=== PATIENT | female | born 1940 | race Caucasian/White ===

== ENCOUNTER → 2018-12-07 11:40 | Outpatient (CLI) | payer OTHER, SELFPAY ==
--- NOTE | 2018-12-07 | DI.CT.S_ITS ---
PROCEDURE: CT ABDOMEN PELVIS W CON INDICATIONS: ABDOMINAL MASS TECHNIQUE: After the administration of oral and intravenous contrast, 5 mm thick sections acquired from the diaphragms to the symphysis. 5 mm thick coronal and sagittal reformats were performed. For radiation dose reduction, the following was used: automated exposure control, adjustment of mA and/or kV according to patient size. COMPARISON: None. FINDINGS: Image quality: Excellent. ABDOMEN: Lung bases: Lung bases are clear. Heart size is normal. Solid organs: Liver is normal in size and enhancement. Numerous scattered hepatic hypodensities are too small to accurately characterize. The largest measures approximate 9 mm with suggestion of peripheral nodular enhancement. Findings may represent hepatic hemangiomas versus cysts. Gallbladder demonstrates asymmetric wall thickening which may represent adherent gallstones or sludge. No pericholecystic fluid or stranding. Biliary system is non-dilated. Pancreas enhances normally. Spleen is normal in size and enhancement. No adrenal nodules. Kidneys demonstrate normal variant rotation and positioning with the right kidney situated more anteriorly towards the midline abdomen. Kidneys are normal in size and enhancement, without hydronephrosis. There is a 2 mm nonobstructive right and a 7 mm nonobstructive left nephrolith. Peritoneum and bowel: Stomach, small bowel, and colon loops are normal in caliber and wall thickness. There is moderate fecal load seen throughout the colon. No free fluid or air. Nodes and vessels: No retroperitoneal or mesenteric adenopathy. Aorta and inferior vena cava are normal in caliber. Miscellaneous: No ventral hernias. Small hiatal hernia. PELVIS: Genitourinary: Bladder wall thickness is normal. Miscellaneous: No inguinal hernias or adenopathy. Bones: No suspicious bony lesions. No vertebral body compression fractures. IMPRESSION: 1. CT abdomen and pelvis without acute abnormalities. 2. Asymmetric gallbladder wall thickening. This may be due to volume averaging artifact versus adherent gallstone or sludge. Recommend right upper quadrant abdominal ultrasound for further characterization. 3. Multiple hepatic hypodensities which are too small to accurately characterize. The largest measures 9 mm in the right hepatic lobe which demonstrates suggestion of peripheral nodular enhancement. Findings are likely related to hepatic hemangiomas versus cysts. 4. Bilateral nephrolithiasis without obstructive uropathy. 5. Moderate fecal load seen throughout the colon. 6. Normal variant rotation of the bilateral kidneys with the right kidney being more anteriorly positioned in the midline abdomen. Dictated by: Juan J Bartlett M.D. on 12/07/2018 15:37 Approved by: Juan J Bartlett M.D. on 12/07/2018 at 15:52
[2018-12-07 12:22] LABS: BUN Creatinine Ratio 25.7 (6-22); Blood Urea Nitrogen 18 mg/dL (7-17); Estimated Glomerular Filt Rate > 60.0 mL/min (>60)
== END ==
PROVIDERS: PCP Family Medicine; Visit Provider Family Medicine
DX: Z01.818 Encounter for other preprocedural examination (principal); R19.00 Intra-abdominal and pelvic swelling, mass and lump, unspecified site; N20.0 Calculus of kidney; K44.9 Diaphragmatic hernia without obstruction or gangrene
CPT/HCPCS: 36415; 74177; 82565; 84520; Q9967

== ENCOUNTER → 2019-10-25 08:58 | Outpatient (CLI) | payer MEDICARE, SELFPAY ==
--- NOTE | 2019-10-25 | DI.MG.S_ITS ---
BILATERAL DIGITAL SCREENING MAMMOGRAM 3D/2D WITH CAD: 10/25/2019 CLINICAL: Routine screening. Comparison is made to exams dated: 09/09/2017 mammogram, 05/01/2016 mammogram, and 09/13/2014 mammogram - [facility]. The tissue of both breasts is extremely dense, which lowers the sensitivity of mammography. Current study was also evaluated with a Computer Aided Detection (CAD) system. There are benign vascular calcifications in both breasts. No significant masses, calcifications, or other findings are seen in either breast. There has been no significant interval change. IMPRESSION: There is no mammographic evidence of malignancy. A 1 year screening mammogram is recommended. This exam was interpreted at Station ID: [id number]. NOTE: For mammograms, a report in lay terms will be sent to the patient. Approximately 15% of breast malignancies will not be visualized mammographically. In the management of a palpable breast mass, a negative mammogram must not discourage biopsy of a clinically suspicious lesion. Electronically Signed By: Juan J ochoa/samantha:10/25/2019 16:51:22 letter sent: Normal Exam ACR BI-RADS Category 2: Benign Finding(s) 3342F
== END ==
PROVIDERS: PCP Family Medicine; Visit Provider Family Medicine
DX: Z12.31 Encounter for screening mammogram for malignant neoplasm of breast (principal)
CPT/HCPCS: 77063; 77067

== ENCOUNTER → 2020-08-01 15:16 | Outpatient (CLI) | payer MEDICARE, SELFPAY ==
--- NOTE | 2020-08-01 | DI.RAD.S_ITS ---
PROCEDURE: XR DEXA AXIAL SKELETON INDICATIONS: OSTEOPENIA COMPARISON: None. FINDINGS: This blank DEXA report has been sent in error by the PACS system. The correct and complete report will be forthcoming in 1-2 days. Thank you for your patience and understanding. Dictated by: Arline Pfeiffer MD, PhD on 08/01/2020 at 17:44 Approved by: Arline Pfeiffer MD, PhD on 08/01/2020 at 17:44
== END ==
PROVIDERS: PCP Family Medicine; Referring Provider Family Medicine; Visit Provider Family Medicine
DX: M81.0 Age-related osteoporosis without current pathological fracture (principal); Z78.0 Asymptomatic menopausal state; Z90.722 Acquired absence of ovaries, bilateral; Z82.62 Family history of osteoporosis
CPT/HCPCS: 77080